=== PATIENT | female | born 1975 | race Caucasian/White ===

== ENCOUNTER → 2020-07-06 10:38 | Outpatient (CLI) | payer OTHER, SELFPAY ==
--- NOTE | 2020-07-06 10:43 | MM_ITS ---
PROCEDURE: MM DIG SCREENING MAMM BI W/CAD Digital Breast Tomosynthesis Included CLINICAL INDICATION: SCREENING There is no personal or family history of breast cancer. There has been a previous biopsy right breast for benign disease. COMPARISON: MG DMSB DIG MAMM-SCREEN BROOKE W/CAD from 08/21/2016 MG DMDXUAVR DIG MAMM-DX UNI A/VW-RT W/CAD from 08/31/2016 MG DMDXUR DIG MAMM-DX UNI-RT W/CAD from 09/13/2016 TECHNIQUE: Standard CC and MLO images and 3D Tomosynthesis was obtained. R2 CAD reviewed. FINDINGS: There is a markedly and diffusely dense and heterogenic parenchymal pattern lessening the sensitivity of mammography. There is a biopsy clip deep in the right breast. Tomograms are most helpful in this type of dense breast parenchyma. There is no suspicious lesion in either breast and no suspicious microcalcifications. However recommend monthly breast self-examination in view of the diffusely dense pattern. IMPRESSION: Diffusely dense parenchymal pattern with no suspicious lesions seen BI-RAD Category: 2 Benign Finding(s) FOLLOW-UP: 1YR 1 Year Follow-up (A letter has been sent to the patient regarding results of the study.) Dictated by: Dr. Kd López MD 07/09/2020 08:57 Dr. Kd López MD in [place] 07/09/2020 08:57
== END ==
PROVIDERS: PCP Nurse Practitioner Family; Visit Provider Nurse Practitioner Family
DX: Z12.31 Encounter for screening mammogram for malignant neoplasm of breast (principal)
CPT/HCPCS: 77063; 77067

== ENCOUNTER 2020-12-05 10:40 | Emergency (ER) | payer OTHER, SELFPAY ==
[2020-12-05 10:45] VITALS: BP 144/88; PULSE 88; RESP 19; TEMP 37.1; O2SAT 98; BMI 28.4
--- NOTE | 2020-12-05 11:13 | HMH.EDUTC ---
[facility] Disposition Clinical Impression: Upper respiratory infection, viral, COVID-19 virus test result unknown Disposition: Home, Self-Care Condition on Discharge: Good Instructions: DI for Viral Upper Respiratory Infection -- Adult, COVID-19: Protecting Yourself When You're at High Risk, Preventing the Spread of Coronavirus Discharge Instructions, DI for COVID-19 (Suspected or Confirmed ) Additional Instructions: covid swab was sent to lab, call later today for results. self isolate until test results are known to be negative No sign of a bacterial infection. Likely viral. Viruses can take 7-14 days to run their course. Nasal saline and bulb syringe or nose Kylie to remove nasal drainage to help with nasal congestion. Hard to eat, drink, sleep with nasal congestion so important to keep this cleaned out. Monitor temp. Tylenol or Motrin as needed for pain or fever Encourage fluids, water, Gatorade, Powerade, Pedialyte if infant/toddler/child Warm salt water gargles Warm fluids Sore throat lozenges Sleep elevated Humidifier/vaporizer Follow-up immediately for new or worsening symptoms or no noticeable improvement over the next 48-72 hours. Referrals: Beti Mitchell APRN [Primary Care Provider] - Time of Disposition: 11:16 Medical Decision Making - Roger Inquiry Pt receiving controlled substance: No Orders (Tests/Meds): ORDERS Category Date Time Status Covid-19 Nasal PCR ([facility]) Routine Lab 12/05/20 11:12 Received [facility] HPI - General Chief complaint: Urgent Treatment [facility] Stated complaint: cough body aches, weakness Time Seen by Provider: 12/05/20 11:13 Mode of Arrival: Ambulatory Source of Information: Patient Limitations: No Limitations - History of Present Illness Provider Complaint: 45 yr old female presents for cough, nasal congestion, tiredness and body aches. pt states she seen her md on sunday and was told it was allergies but her is having same symptoms so they would like tested for covid - Related Data Allergies Allergy/AdvReac Type Severity Reaction Status Date / Time SHELLFISH (FOOD) Allergy Severe S-ANAPHYLAX Uncoded 04/03/17 14:17 IS [facility] History - Hepatitis A Screen Attestation statement:: This patient has been screened for Hepatitis A risk factors. I have reviewed the patient's past medical history: Yes ROS Obtained: Yes Systems reviewed as appropriate & no additional complaints - Constitutional Constitutional: Reports system reviewed and no additional complaints, except as docu, Reports body ache, Reports fatigue, Denies fever(s) - Eyes Eyes: Reports system reviewed and no additional complaints, except as docu, Denies blurry vision - ENT Ears, Nose, Mouth, and Throat: Reports system reviewed and no additional complaints, except as docu, Reports nasal congestion, Reports nasal discharge, Denies sore throat - Cardiovascular Cardiovascular: Reports system reviewed and no additional complaints, except as docu, Denies chest pain - Respiratory Respiratory: Reports system reviewed and no additional complaints, except as docu, Denies chest congestion, Reports cough - Gastrointestinal Gastrointestingal: Reports: system reviewed and no additional complaints, except as docu. Denies: nausea, vomiting - Genitourinary Female Genitourinary: Reports system reviewed and no additional complaints, except as docu - Musculoskeletal Musculoskeletal: Reports system reviewed and no additional complaints, except as docu, Denies joint pain - Integumentary/Breasts Skin/Breast: Reports system reviewed and no additional complaints, except as docu, Denies rash - Neurologic Neurologic: Reports system reviewed and no additional complaints, except as docu, Denies dizziness, Reports headache(s) - Endocrine Endocrine: Reports system reviewed and no additional complaints, except as docu, Reports fatigue - Hematologic/Lymphatic Henatologic/Lymphatic: Reports system reviewed and no
[2020-12-05 11:18] VITALS: BP 144/88; PULSE 88; RESP 19; TEMP 37.1; O2SAT 98
--- NOTE | 2020-12-05 17:15 | PC.NURSE ---
pt notified of positive covid test results
== END 2020-12-05 11:29 | disposition home or self-care (01) ==
PROVIDERS: Emergency Provider Nurse Practitioner Family; PCP Nurse Practitioner Family
DX: U07.1 COVID-19 (principal); J06.9 Acute upper respiratory infection, unspecified
CPT/HCPCS: 99202; G0463; U0003

== ENCOUNTER → 2021-11-14 18:12 | Outpatient (CLI) | payer OTHER, SELFPAY ==
[2021-11-14 19:43] LABS: Alanine Aminotransferase 34 U/L (12-78); Albumin Level 4.6 g/dl (3.5-5.0); Albumin/Globulin Ratio 1.6 (1.1-1.8); Alkaline Phosphatase 82 U/L (38-126); Anion Gap 15.4 mEq/L (5-15); Aspartate Amino Transferase 30 U/L (14-36); Bilirubin,Total 0.3 mg/dl (0.2-1.3); Blood Urea Nitrogen 13 mg/dl (7-17); Calcium 9.8 mg/dl (8.4-10.2); Carbon Dioxide 22 mmol/L (22.0-30.0); Chloride 107 mmol/L (98-107); Chol/HDL Ratio 5.6 (1-3.5); Cholesterol 306 mg/dl (140-200); Estimated Glomerular Filt Rate 132 ml/min (>60); GFR (African American) 159 ML/MIN (>60); Globulin 2.9 g/dL (1.3-3.2); Glucose 259 mg/dl (74-100); HDL Cholesterol 55 mg/dl (40-60); Potassium 4.4 mmoL/L (3.5-5.1); Sodium 140 mmol/L (136-145); Total Protein,Serum 7.5 g/dl (6.3-8.2); Triglycerides 258 mg/dl (30-150); VLDL Cholesterol 52 mg/dL (0-40)
[2021-11-14 19:46] LABS: Basophils # 0.1 K/mm3 (0-0.2); Basophils % 1.8 % (0.1-2.0); Eosinophils # 0.1 K/mm3 (0.0-0.4); Eosinophils % 1.1 % (0.1-12.0); Hematocrit 49.5 % (37.0-47.0); Hemoglobin 15.6 g/dL (12.2-16.2); Lymphocytes % 26.9 % (10-50); Mean Corpuscular HGB Conc 31.5 g/dL (31.8-35.4); Mean Corpuscular Hemoglobin 31.1 pg (27.0-31.2); Mean Corpuscular Volume 98.4 fl (81-99); Mean Platelet Volume 9.7 fl (7.4-10.4); Monocytes # 0.4 K/mm3 (0.1-1.0); Monocytes % 5.6 % (1.7-9.3); Neutrophils # 4.8 K/mm3 (1.8-7.8); Neutrophils % 64.6 % (37.0-80.0); Platelet Count 379 K/mm3 (142-424); Red Blood Count 5.03 M/mm3 (4.20-5.40); Red Cell Distribution Width 13.2 % (11.5-17.5); White Blood Count 7.4 K/mm3 (4.8-10.8)
[2021-11-14 19:54] LABS: Direct LDL Cholesterol 173.43 mg/dL (100-129)
[2021-11-14 21:12] LABS: Hemoglobin A1C 9.3 % (4.0-6.0)
== END ==
LOC: LAB 18:14 → LAB.DROPOF 11-15 10:35
PROVIDERS: PCP Family Medicine; Visit Provider Family Medicine
DX: E11.9 Type 2 diabetes mellitus without complications (principal); Z79.84 Long term (current) use of oral hypoglycemic drugs
CPT/HCPCS: 80053; 80061; 83036; 85025

== ENCOUNTER → 2021-11-15 16:16 | Outpatient (CLI) | payer OTHER, SELFPAY ==
[2021-11-15 17:22] LABS: Thyroid Stimulating Hormone 0.66 uIU/mL (0.465-4.68)
== END ==
PROVIDERS: PCP Family Medicine; Visit Provider Family Medicine
DX: R53.83 Other fatigue (principal)
CPT/HCPCS: 84443

== ENCOUNTER → 2021-11-18 13:10 | Outpatient (CLI) | payer OTHER, SELFPAY | PROVIDERS: PCP Family Medicine; Visit Provider Family Medicine | DX: J02.9 Acute pharyngitis, unspecified (principal) | CPT/HCPCS: 87070 ==

== ENCOUNTER 2022-01-03 16:30 | Emergency (ER) | payer OTHER, SELFPAY ==
[2022-01-03 16:32] VITALS: BP 165/98; PULSE 88; RESP 18; TEMP 36.7; O2SAT 98; BMI 27.2
--- NOTE | 2022-01-03 16:58 | EXP.UTC ---
Discharge Plan Disposition Patient Disposition: Home, Self-Care Condition: Good Prescriptions Prescriptions: New benzonatate [benzonatate] 100 mg capsule 100 mg PO TIDP PRN (Reason: Cough) Qty: 30 0RF methylprednisolone 4 mg Tablets,Dose Pack 4 mg PO DIRECTED Qty: 21 0RF cefdinir 300 mg capsule 300 mg PO BID Qty: 20 0RF No Action omeprazole 40 mg capsule,delayed release(DR/EC) 40 mg PO DAILY Qty: 30 2RF Victoza 2-Ayaz 0.6 mg/0.1 mL (18 mg/3 mL) pen injector 0.6 mg SQ DAILY 30 Days Qty: 3 2RF montelukast [Singulair] 10 mg tablet 10 mg PO DAILY 30 Days Qty: 30 2RF Jardiance 25 mg tablet 25 mg PO DAILY 30 Days Qty: 30 2RF albuterol sulfate [Ventolin HFA] 90 mcg/actuation HFA aerosol inhaler 1 puff IH QID 30 Days Qty: 8.5 2RF glipizide 10 mg tablet extended release 24hr 10 mg PO DAILY 30 Days Qty: 30 2RF metformin 500 mg tablet extended release 24 hr 500 mg PO BID 30 Days Qty: 60 2RF fluconazole [Diflucan] 150 mg tablet 150 mg PO Q3D 0 Days Qty: 2 0RF cephalexin 500 mg tablet 500 mg PO BID 7 Days Qty: 14 0RF Referrals Follow up/Referrals: Jb Antoine MD [Primary Care Provider] - See instructions Activity Restrictions/Add. Instructions Additional Instructions/Restrictions: Drink plenty of fluids. Take tylenol or ibuprofen for pain or fever. Take the medications as directed. Follow up with your regular doctor. GO TO THE ER FOR ANY WORSENING SYMPTOMS Don't start the oral steroids until tomorrow, since you had the shot here today. Clinical Impressions Clinical Impression: Sinusitis Stand Alone Forms Stand Alone Forms: Work/School Release Instructions Patient Instructions: Sinusitis, DI for Sinusitis Discharge ED Provider: Rafael Mckeon [facility] General Stated complaint: head congetion Mode of Arrival: Ambulatory Source of Information: Patient Limitations: No Limitations Time Seen by Provider: 01/03/22 16:55 Description of Symptoms (Recalled from Triage Doc. by RN): SINUS INFECTION HEENT Symptoms (Recalled from RN notes): Yes Resp Symptoms (Recalled from RN notes): No Skin Symptoms (Recalled from RN notes): No MS Symptoms (Recalled from RN notes): No Functional Status (Recalled from RN notes): NA History of Present Illness Provider Complaint: She states that for the past 1 week she has had sinus congestion, and sinus drainage. She denies any fever. She denies that she has covid-19 and she refuses a covid or viral test. Related Data Previous Rx's Medication Instructions Recorded albuterol sulfate 90 mcg/actuation 1 puff inhalation QID shortness of 11/14/21 aerosol inhaler (Ventolin HFA) breath or wheezing 30 days #8.5 grams empagliflozin 25 mg tablet 25 mg PO DAILY diabetes 30 days 11/14/21 (Jardiance) #30 tabs glipizide 10 mg tablet, extended 10 mg PO DAILY diabetes 30 days 11/14/21 release 24 hr #30 tabs liraglutide 0.6 mg/0.1 mL (18 mg/3 0.6 mg (0.1 mL) SQ DAILY diabetes 11/14/21 mL) subcutaneous pen injector 30 days #3 mL (Victoza 2-Ayaz) metformin 500 mg tablet,extended 500 mg PO BID diabetes 30 days #60 11/14/21 release 24 hr tabs montelukast 10 mg tablet 10 mg PO DAILY allergies 30 days 11/14/21 (Singulair) #30 tabs omeprazole 40 mg capsule,delayed 40 mg PO DAILY #30 caps 11/18/21 release cephalexin 500 mg tablet 500 mg PO BID 7 days #14 tabs 12/23/21 fluconazole 150 mg tablet 150 mg PO Q3D 2 doses #2 tabs 12/23/21 (Diflucan) benzonatate 100 mg capsule 100 mg PO TIDP PRN Cough #30 caps 01/03/22 cefdinir 300 mg capsule 300 mg PO BID #20 caps 01/03/22 methylprednisolone 4 mg tablets in 4 mg PO DIRECTED #21 tabs 01/03/22 a dose pack Allergies Allergy/AdvReac Type Severity Reaction Status Date / Time shellfish derived Allergy Verified 12/23/21 08:24 Worker's Comp Is this a Worker's Comp case?: No [facility] Medical History
[2022-01-03 17:21] VITALS: BP 165/98; PULSE 88; RESP 18; TEMP 36.7; O2SAT 99
== END 2022-01-03 17:24 | disposition home or self-care (01) ==
PROVIDERS: Emergency Provider Nurse Practitioner Family; PCP Family Medicine
DX: J32.9 Chronic sinusitis, unspecified (principal)
CPT/HCPCS: 96372; 99212; G0463; J0696

== ENCOUNTER 2022-07-04 14:28 | Emergency (ER) | payer BC, SELFPAY ==
[2022-07-04 15:00] VITALS: BP 138/90; PULSE 107; RESP 20; TEMP 37.3; O2SAT 96; BMI 27.7
--- NOTE | 2022-07-04 15:07 | EXP.UTC ---
Discharge Plan Disposition Patient Disposition: Home, Self-Care Condition: Good Prescriptions Prescriptions: New promethazine-DM 6.25-15 mg/5 mL Syrup 5 ml PO Q6H PRN (Reason: Cough) Qty: 240 0RF amoxicillin [amoxicillin] 875 mg tablet 875 mg PO Q12H Qty: 20 0RF methylprednisolone 4 mg Tablets,Dose Pack 4 mg PO DIRECTED Qty: 21 0RF No Action omeprazole 40 mg capsule,delayed release(DR/EC) 40 mg PO DAILY Qty: 30 2RF Victoza 2-Ayaz 0.6 mg/0.1 mL (18 mg/3 mL) pen injector 0.6 mg SQ DAILY 30 Days Qty: 3 1RF (DME) True Metrix Glucose Test Strip Strip See Rx Instructions .Route Qty: 100 4RF Rx Instructions: As directed epinephrine [EpiPen 2-Ayaz] 0.3 mg/0.3 mL auto-injector 0.3 mg IM Q4H PRN (Reason: hypersensitivity reaction) 30 Days Qty: 2 1RF montelukast [Singulair] 10 mg tablet 10 mg PO DAILY 30 Days Qty: 30 1RF albuterol sulfate 90 mcg/actuation HFA aerosol inhaler 1 puff inhalation Q6H PRN (Reason: bronchospasm) 17 Days Qty: 18 2RF Jardiance 25 mg tablet 25 mg PO DAILY 30 Days Qty: 30 1RF glipizide 10 mg tablet extended release 24hr 10 mg PO DAILY 30 Days Qty: 30 1RF metformin 500 mg tablet extended release 24 hr 500 mg PO BID 30 Days Qty: 60 1RF Referrals Follow up/Referrals: Jb Antoine MD [Primary Care Provider] - See instructions Activity Restrictions/Add. Instructions Additional Instructions/Restrictions: Drink plenty of fluids. Take tylenol or ibuprofen for pain or fever. Take the medications as directed. Follow up with your regular doctor. GO TO THE ER FOR ANY WORSENING SYMPTOMS Don't start the oral steroids until tomorrow, since you had the shot here today. The cough medication (promethazine dm) will make you drowsy, so don't drive or operate heavy machinery after taking it. Clinical Impressions Clinical Impression: Sinusitis Instructions Patient Instructions: DI for Sinusitis Discharge ED Provider: Rafael Mckeon [facility] HPI General Stated complaint: possible sinus infection Time Seen by Provider: 07/04/22 15:07 History of Present Illness Provider Complaint: She states that for the past 1 week she has had sinus congestion and sinus drainage. Related Data Previous Rx's Medication Instructions Recorded omeprazole 40 mg capsule,delayed 40 mg PO DAILY #30 caps 11/18/21 release liraglutide 0.6 mg/0.1 mL (18 mg/3 0.6 mg (0.1 mL) SQ DAILY diabetes 04/11/22 mL) subcutaneous pen injector 30 days #3 mL (Victoza 2-Ayaz) blood sugar diagnostic (True #100 ea 04/12/22 Metrix Glucose Test Strip) epinephrine 0.3 mg/0.3 mL 0.3 mg (0.3 mL) IM Q4H PRN 04/14/22 injection, auto-injector (EpiPen hypersensitivity reaction 30 days 2-Ayaz) #2 ea montelukast 10 mg tablet 10 mg PO DAILY allergies 30 days 04/20/22 (Singulair) #30 tabs albuterol sulfate 90 mcg/actuation 1 puff inhalation Q6H PRN 05/24/22 aerosol inhaler bronchospasm 17 days #18 grams empagliflozin 25 mg tablet 25 mg PO DAILY diabetes 30 days 06/12/22 (Jardiance) #30 tabs glipizide 10 mg tablet, extended 10 mg PO DAILY diabetes 30 days 06/12/22 release 24 hr #30 tabs metformin 500 mg tablet,extended 500 mg PO BID diabetes 30 days #60 06/12/22 release 24 hr tabs amoxicillin 875 mg tablet 875 mg PO Q12H #20 tabs 07/04/22 methylprednisolone 4 mg tablets in 4 mg PO DIRECTED #21 tabs 07/04/22 a dose pack promethazine-DM 6.25 mg-15 mg/5 mL 5 ml PO Q6H PRN Cough #240 mL 07/04/22 oral syrup Allergies Allergy/AdvReac Type Severity Reaction Status Date / Time shellfish derived Allergy Verified 07/04/22 15:24 PFSH [facility] Disclaimer: The information contained in this section may have been updated after the patient was seen, as this information can be updated by other users. Medical History Asthma DM2 (diabetes mellitus, type 2) Hypertension Family History (Reviewed 07/04/22 @ 1
[2022-07-04 16:44] VITALS: BP 138/90; PULSE 107; RESP 20; TEMP 37.3; O2SAT 96
== END 2022-07-04 16:43 | disposition home or self-care (01) ==
PROVIDERS: Emergency Provider Nurse Practitioner Family; PCP Family Medicine
DX: J01.90 Acute sinusitis, unspecified (principal)
CPT/HCPCS: 96372; 99212; 99214; G0463; J0696

== ENCOUNTER → 2023-01-16 16:27 | Outpatient (CLI) | payer BC, SELFPAY ==
--- NOTE | 2023-01-16 16:28 | MM_ITS ---
PROCEDURE INFORMATION: Exam: MG Bilateral Screening 3D Mammography Exam date and time: 01/16/2023 4:26 PM Age: 47 years old Clinical indication: Screening examination TECHNIQUE: Imaging protocol: Bilateral Screening tomosynthesis and 2D mammography including computer-aided detection (CAD) when performed. COMPARISON: 1. MG MM DIG SCREENING MAMM BI W/CAD 07/06/2020 11:04 AM 2. MG DMDXUR DIG MAMM-DX UNI-RT W/CAD 09/13/2016 12:01 PM FINDINGS: MAMMOGRAPHY: Breast composition: The breasts are heterogeneously dense, which may obscure small masses. Mass: None. Architectural distortion: None. Calcifications: No suspicious calcifications. Asymmetric density: None. Skin thickening: None. Axillary adenopathy: None. IMPRESSION: No mammographic evidence of malignancy. Annual screening is recommended unless otherwise clinically indicated. ASSESSMENT: BI-RADS Category 1: Negative
== END ==
PROVIDERS: PCP Family Medicine; Visit Provider Nurse Practitioner Family
DX: Z12.31 Encounter for screening mammogram for malignant neoplasm of breast (principal)
CPT/HCPCS: 77063; 77067

== ENCOUNTER 2023-01-21 09:14 | Emergency (ER) | payer BC, SELFPAY ==
[2023-01-21 09:16] VITALS: BP 131/84; PULSE 113; RESP 18; TEMP 36.9; O2SAT 95; BMI 26.1
--- NOTE | 2023-01-21 09:42 | EXP.UTC ---
Discharge Plan Disposition Patient Disposition: Home, Self-Care Condition: Good Prescriptions Prescriptions: New amoxicillin [amoxicillin] 875 mg tablet 875 mg PO Q12H Qty: 20 0RF benzonatate [benzonatate] 100 mg capsule 100 mg PO TIDP PRN (Reason: Cough) Qty: 30 0RF methylprednisolone 4 mg Tablets,Dose Pack 4 mg PO DIRECTED Qty: 21 0RF No Action albuterol sulfate 90 mcg/actuation HFA aerosol inhaler 1 puff inhalation Q6H PRN (Reason: bronchospasm) 17 Days Qty: 18 2RF phentermine [Adipex-P] 37.5 mg capsule 37.5 mg PO DAILY Qty: 30 3RF Rx Instructions: must administer 30 minutes before or 1-2 hours after breakfast (DME) True Metrix Glucose Test Strip Strip See Rx Instructions .Route Qty: 100 4RF Rx Instructions: As directed epinephrine [EpiPen 2-Ayaz] 0.3 mg/0.3 mL auto-injector 0.3 mg IM Q4H PRN (Reason: hypersensitivity reaction) 30 Days Qty: 2 1RF Victoza 2-Ayaz 0.6 mg/0.1 mL (18 mg/3 mL) pen injector 0.6 mg SQ DAILY 30 Days Qty: 3 2RF montelukast 10 mg tablet See Rx Instructions .ROUTE .COMPLEX Qty: 30 2RF Dose Instruction: TAKE 1 TABLET BY MOUTH DAILY FOR ALLERGIES FOR 30 DAYS Rx Instructions: TAKE 1 TABLET BY MOUTH DAILY FOR ALLERGIES FOR 30 DAYS omeprazole 40 mg capsule,delayed release(DR/EC) 40 mg PO DAILY Qty: 30 2RF glipizide 10 mg tablet extended release 24hr See Rx Instructions .ROUTE .COMPLEX Qty: 90 0RF Dose Instruction: TAKE 1 TABLET BY MOUTH DAILY Rx Instructions: TAKE 1 TABLET BY MOUTH DAILY Jardiance 25 mg tablet See Rx Instructions .ROUTE .COMPLEX Qty: 90 0RF Dose Instruction: TAKE 1 TABLET BY MOUTH DAILY Rx Instructions: TAKE 1 TABLET BY MOUTH DAILY metformin 500 mg tablet extended release 24 hr 500 mg PO BID 30 Days Qty: 60 2RF Referrals Follow up/Referrals: Jb Antoine MD [Primary Care Provider] - See instructions Activity Restrictions/Add. Instructions Additional Instructions/Restrictions: Drink plenty of fluids. Take tylenol or ibuprofen for pain or fever. Take the medications as directed. Follow up with your regular doctor. GO TO THE ER FOR ANY WORSENING SYMPTOMS Clinical Impressions Clinical Impression: Sinusitis Instructions Patient Instructions: Sinusitis, DI for Sinusitis Discharge ED Provider: Rafael Mckeon [facility] HPI General Stated complaint: congestion, sinus pressure, cough Mode of Arrival: Ambulatory Source of Information: Patient Limitations: No Limitations Time Seen by Provider: 01/21/23 09:41 Description of Symptoms (Recalled from Triage Doc. by RN): Sinus infection HEENT Symptoms (Recalled from RN notes): Yes Resp Symptoms (Recalled from RN notes): No Skin Symptoms (Recalled from RN notes): No MS Symptoms (Recalled from RN notes): No Functional Status (Recalled from RN notes): n/a History of Present Illness Provider Complaint: She states that for the past 4 days she has had sinus congestion, sinus drainage, a productive cough and she has felt bad. Related Data Previous Rx's Medication Instructions Recorded blood sugar diagnostic (True #100 ea 04/12/22 Metrix Glucose Test Strip) epinephrine 0.3 mg/0.3 mL 0.3 mg (0.3 mL) IM Q4H PRN 04/14/22 injection, auto-injector (EpiPen hypersensitivity reaction 30 days 2-Ayaz) #2 ea liraglutide 0.6 mg/0.1 mL (18 mg/3 0.6 mg (0.1 mL) SQ DAILY diabetes 09/14/22 mL) subcutaneous pen injector 30 days #3 mL (Victoza 2-Ayaz) montelukast 10 mg tablet See Rx Instructions .Route 09/14/22 .COMPLEX #30 tabs omeprazole 40 mg capsule,delayed 40 mg PO DAILY #30 caps 09/14/22 release empagliflozin 25 mg tablet See Rx Instructions .Route 11/13/22 (Jardiance) .COMPLEX #90 tabs glipizide 10 mg tablet, extended See Rx Instructions .Route 11/13/22 release 24 hr .COMPLEX #90 tabs albuterol sulfate 90 mcg/actuation 1 puff inhalation Q6H PRN 11/28/22 aerosol inhaler bronchospasm 17 days #1
[2023-01-21 10:32] VITALS: BP 131/84; PULSE 113; RESP 18; TEMP 36.9; O2SAT 95
== END 2023-01-21 10:31 | disposition home or self-care (01) ==
PROVIDERS: Emergency Provider Nurse Practitioner Family; PCP Family Medicine
DX: J01.90 Acute sinusitis, unspecified (principal); E11.9 Type 2 diabetes mellitus without complications; I10 Essential (primary) hypertension; J45.909 Unspecified asthma, uncomplicated; Z79.84 Long term (current) use of oral hypoglycemic drugs
CPT/HCPCS: 96372; 99212; 99214; G0463; J0696

== ENCOUNTER 2023-03-19 16:23 | Emergency (ER) | payer BC, SELFPAY ==
[2023-03-19 18:35] VITALS: BP 146/83; PULSE 89; RESP 18; TEMP 36.8; O2SAT 98; BMI 27.1
--- NOTE | 2023-03-19 18:50 | EXP.UTC ---
Discharge Plan Disposition Patient Disposition: Home, Self-Care Condition: Good Prescriptions Prescriptions: New guaifenesin [Mucinex] 600 mg tablet extended release 12hr 600 mg PO BID PRN (Reason: cough) Qty: 20 0RF azithromycin [Zithromax Z-Ayaz] 250 mg tablet See Rx Instructions .ROUTE .COMPLEX 5 Days Qty: 6 0RF Rx Instructions: For 250 mg dose pack: take 500 mg today (day 1), then 250 mg for 4 days (days 2-5) No Action phentermine [Adipex-P] 37.5 mg capsule 37.5 mg PO DAILY Qty: 30 3RF Rx Instructions: must administer 30 minutes before or 1-2 hours after breakfast (DME) True Metrix Glucose Test Strip Strip See Rx Instructions .Route Qty: 100 4RF Rx Instructions: As directed epinephrine [EpiPen 2-Ayaz] 0.3 mg/0.3 mL auto-injector 0.3 mg IM Q4H PRN (Reason: hypersensitivity reaction) 30 Days Qty: 2 1RF metformin 500 mg tablet extended release 24 hr 500 mg PO BID 30 Days Qty: 60 2RF glipizide 10 mg tablet extended release 24hr See Rx Instructions .ROUTE .COMPLEX Qty: 90 0RF Dose Instruction: TAKE 1 TABLET BY MOUTH DAILY Rx Instructions: TAKE 1 TABLET BY MOUTH DAILY albuterol sulfate 90 mcg/actuation HFA aerosol inhaler 1 puff inhalation Q6H PRN (Reason: bronchospasm) 17 Days Qty: 18 2RF Victoza 2-Ayaz 0.6 mg/0.1 mL (18 mg/3 mL) pen injector 0.6 mg SQ DAILY 30 Days Qty: 3 2RF Jardiance 25 mg tablet See Rx Instructions .ROUTE .COMPLEX Qty: 90 0RF Dose Instruction: TAKE 1 TABLET BY MOUTH DAILY Rx Instructions: TAKE 1 TABLET BY MOUTH DAILY Referrals Follow up/Referrals: Jb Antoine MD [Primary Care Provider] - See instructions Activity Restrictions/Add. Instructions Additional Instructions/Restrictions: *Monitor Temp, Over the counter Motrin or Tylenol as directed/as needed Tylenol every 4 hours and Motrin every 6 hours (as long as your family doctor has told you that you can take it) for fever or pain. and straight to ER if unable to lower temp less than 101.0 after medication given *Warm salt water gargles may help to soothe the throat *Throat Lozenges? *Warm fluids like tea with honey may help to soothe the throat? *Sleep elevated *Humidifier/Vaporizer Take medication as prescribed Follow up IMMEDIATELY for new or worsening symptoms or no Noticeable improvement over the next 48-72 hours. 911 for difficulty breathing or swallowing Clinical Impressions Clinical Impression: Sinusitis Qualifiers: Sinusitis location: unspecified location Chronicity: unspecified Qualified Code(s): J32.9 - Chronic sinusitis, unspecified Instructions Patient Instructions: DI for Sinusitis, Sinusitis Discharge ED Provider: Rox Flores [facility] General Stated complaint: congestion cough body ache Mode of Arrival: Ambulatory Source of Information: Patient Limitations: No Limitations Time Seen by Provider: 03/19/23 18:51 Description of Symptoms (Recalled from Triage Doc. by RN): sore throat, BRAGA, cough, and sinus pressure HEENT Symptoms (Recalled from RN notes): Yes Resp Symptoms (Recalled from RN notes): No Skin Symptoms (Recalled from RN notes): No MS Symptoms (Recalled from RN notes): No Functional Status (Recalled from RN notes): n/a History of Present Illness Provider Complaint: Patient states that she has been having sinus pain and pressure, headache and cough States that she had something similiar last month and finished all her medication but it came back and seems to be getting worse Related Data Previous Rx's Medication Instructions Recorded blood sugar diagnostic (True #100 ea 04/12/22 Metrix Glucose Test Strip) epinephrine 0.3 mg/0.3 mL 0.3 mg (0.3 mL) IM Q4H PRN 04/14/22 injection, auto-injector (EpiPen hypersensitivity reaction 30 days 2-Ayaz) #2 ea phentermine 37.5 mg capsule 37.5 mg PO DAILY #30 caps 11/28/22 (Adipex-P) metformin 500 mg tablet,extend
[2023-03-19 19:30] VITALS: BP 146/83; PULSE 89; RESP 18; TEMP 36.8; O2SAT 98
== END 2023-03-19 19:30 | disposition home or self-care (01) ==
PROVIDERS: Emergency Provider Nurse Practitioner; PCP Family Medicine
DX: J01.90 Acute sinusitis, unspecified (principal); R05.9 Cough, unspecified; R09.81 Nasal congestion; R07.0 Pain in throat; R51.9 Headache, unspecified; E11.9 Type 2 diabetes mellitus without complications; I10 Essential (primary) hypertension; J45.909 Unspecified asthma, uncomplicated; Z79.84 Long term (current) use of oral hypoglycemic drugs
CPT/HCPCS: 96372; 99212; 99214; G0463; J0696

== ENCOUNTER 2023-11-20 09:19 | Outpatient (CLI) | payer BC, SELFPAY ==
--- NOTE | 2023-11-20 09:25 | XR_ITS ---
FINAL REPORT CLINICAL HISTORY: left ankle pain and swelling FINDINGS: Left knee Three views were obtained. There is a comminuted fracture of the distal fibular diaphysis. There is mild medial displacement of the main distal fracture fragment. Chronic calcification is seen inferior to the lateral malleolus. There is lateral soft tissue swelling. IMPRESSION: Fracture as above. Reviewed, Interpreted and Dictated by Zain Hernandez III, MD Transcribed by Yaima Samuel Authenticated and [facility]
== END 2023-11-20 23:59 | disposition home or self-care (01) ==
LOC: RAD 09:19
PROVIDERS: PCP Family Medicine; Visit Provider Orthopaedic Surgery
DX: M25.572 Pain in left ankle and joints of left foot (principal)
CPT/HCPCS: 73610

== ENCOUNTER 2023-12-11 10:06 | Outpatient (CLI) | payer BC, SELFPAY ==
--- NOTE | 2023-12-11 10:10 | XR_ITS ---
FINAL REPORT CLINICAL HISTORY: lt ankle pain f/u fx COMPARISON: 11/20/2023 FINDINGS: LEFT ANKLE Three views demonstrate a mildly displaced and mildly comminuted transverse fracture of the distal fibular diaphysis. There is a well-corticated ossific density inferior to the lateral malleolus which appears old. The visualized joint spaces are normally aligned. The soft tissues are unremarkable. IMPRESSION: Distal fibular diaphysis fracture. Reviewed, Interpreted and Dictated by Mo Jacobson MD Transcribed by Rupa Canada Authenticated and [facility]
== END 2023-12-11 23:59 | disposition home or self-care (01) ==
LOC: RAD 10:08
PROVIDERS: PCP Family Medicine; Visit Provider Internal Medicine Medical Oncology
DX: M25.572 Pain in left ankle and joints of left foot (principal)
CPT/HCPCS: 73610

== ENCOUNTER 2024-01-08 09:39 | Outpatient (CLI) | payer BC, SELFPAY ==
--- NOTE | 2024-01-08 09:43 | XR_ITS ---
FINAL REPORT CLINICAL HISTORY: Left Ankle fracture COMPARISON: 12/11/2023 FINDINGS: LEFT ANKLE Three views demonstrate no acute fracture or dislocation. There is a mildly comminuted fracture of the distal fibular shaft. Early callus formation is present with minimal displacement of the fracture fragments. The overall appearance is stable when compared to the prior exam of December 10. The visualized joint spaces are normally aligned. The soft tissues are unremarkable. IMPRESSION: No acute bony abnormality. Mildly comminuted fracture of the distal fibular shaft, with early callus formation and minimal displacement of the fracture fragments, stable. Reviewed, Interpreted and Dictated by Sarika Brizuela MD Transcribed by Kylah Restrepo Authenticated and [facility]
== END 2024-01-08 23:59 | disposition home or self-care (01) ==
LOC: RAD 09:40
PROVIDERS: Visit Provider Orthopaedic Surgery
DX: M25.572 Pain in left ankle and joints of left foot (principal); S82.65XD Nondisplaced fracture of lateral malleolus of left fibula, subsequent encounter for closed fracture with routine healing
CPT/HCPCS: 73610

== ENCOUNTER 2024-02-05 08:32 | Outpatient (CLI) | payer BC, SELFPAY ==
--- NOTE | 2024-02-05 08:36 | XR_ITS ---
PROCEDURE INFORMATION: Exam: XR Left Ankle Exam date and time: 02/05/2024 8:38 AM Age: 48 years old Clinical indication: Pain; Ankle; Left; Additional info: Left ankle pain, broke fibula November 19 TECHNIQUE: Imaging protocol: Radiologic exam of the left ankle. Views: 3 or more views. COMPARISON: CR XR ANKLE LT MIN 3V 01/08/2024 9:45 AM FINDINGS: Bones/joints: Mildly greater callus formation around the distal fibular diaphyseal fracture from the comparison. Fracture gap is still visible. No change in alignment from prior. No appreciable cortical erosion or distinct periosteal reaction. No acute fracture or malalignment. Ankle mortise is congruent. Accessory lateral malleolar ossicle noted. Soft tissues: Unchanged to mildly increased soft tissue swelling of the left lower extremity, most prominent laterally. No distinct gas or foreign body. IMPRESSION: 1. Unchanged alignment and continued healing of the distal fibular diaphyseal fracture. 2. Unchanged to mildly increased soft tissue swelling of the left lower extremity, most prominent laterally.
== END 2024-02-05 23:59 | disposition home or self-care (01) ==
LOC: RAD 08:33
PROVIDERS: PCP Family Medicine; Visit Provider Physician Assistant Surgical
DX: M25.572 Pain in left ankle and joints of left foot (principal); S82.832A Other fracture of upper and lower end of left fibula, initial encounter for closed fracture
CPT/HCPCS: 73610

== ENCOUNTER 2024-02-29 16:14 | Outpatient (CLI) | payer BC, SELFPAY ==
--- NOTE | 2024-02-29 16:14 | MM_ITS ---
PROCEDURE INFORMATION: Exam: MG Bilateral Screening 3D Mammography Exam date and time: 02/29/2024 4:01 PM Age: 49 years old Clinical indication: Screening examination. TECHNIQUE: Imaging protocol: Bilateral Screening tomosynthesis and 2D mammography including computer-aided detection (CAD) when performed. COMPARISON: 1. MG MM DIG SCREENING MAMM BI W/CAD 01/16/2023 4:26 PM 2. MG MM DIG SCREENING MAMM BI W/CAD 07/06/2020 11:04 AM FINDINGS: MAMMOGRAPHY: Breast composition: The breasts are heterogeneously dense, which may obscure small masses. Mass: None. Architectural distortion: None. Calcifications: No suspicious calcifications. Asymmetric density: None. Skin thickening: None. Axillary adenopathy: None. IMPRESSION: No mammographic evidence of malignancy. Annual screening is recommended unless otherwise clinically indicated. ASSESSMENT: BI-RADS Category 1: Negative.
== END 2024-02-29 23:59 | disposition home or self-care (01) ==
LOC: RAD 16:14
PROVIDERS: PCP Family Medicine; Visit Provider Family Medicine
DX: Z12.31 Encounter for screening mammogram for malignant neoplasm of breast (principal)
CPT/HCPCS: 77063; 77067

== ENCOUNTER 2024-04-02 20:00 | Emergency (ER) | payer BC, SELFPAY ==
[2024-04-02 20:22] VITALS: BP 190/96; PULSE 99; RESP 20; TEMP 36.8; O2SAT 95; BMI 26.1
[2024-04-02 20:23] VITALS: PULSE 101; RESP 17; O2SAT 95
--- NOTE | 2024-04-02 20:25 | ECG_ITS ---
APPROVED REPORT Exam: Resting ECG HR:99 bpm ECG Measurements Heart Rate 99 AXES ME 141 P 46 QRSd 90 QRS -54 QT 349 T 69 QTc 405 Conclusion SINUS RHYTHM PATTERN CONSISTENT WITH PULMONARY DISEASE LEFT ANTERIOR FASCICULAR BLOCK [QRS AXIS <= -45, QR IN I, RS IN II] ABNORMAL ECG UNCONFIRMED REPORT Electronically signed by : KAIT ERAZO, 04/03/2024 06:54:23
--- NOTE | 2024-04-02 20:32 | XR_ITS ---
PROCEDURE INFORMATION: Exam: XR Chest Exam date and time: 04/02/2024 8:34 PM Age: 49 years old Clinical indication: Other: Palpitations TECHNIQUE: Imaging protocol: Radiologic exam of the chest. Views: 1 view. COMPARISON: No relevant prior studies available. FINDINGS: Lungs: Unremarkable. No consolidation. Pleural spaces: Unremarkable. No pleural effusion. No pneumothorax. Heart/Mediastinum: Unremarkable. No cardiomegaly. Bones/joints: Unremarkable. IMPRESSION: No acute findings.
--- NOTE | 2024-04-02 20:33 | HMH.EDGENADL ---
Discharge Plan Disposition Patient Disposition: Home, Self-Care Prescriptions Prescriptions: No Action epinephrine [EpiPen 2-Ayaz] 0.3 mg/0.3 mL auto-injector 0.3 mg IM Q4H PRN (Reason: hypersensitivity reaction) 30 Days Qty: 2 1RF ondansetron 4 mg tablet,disintegrating 4 mg PO Q8H PRN (Reason: nausea and vomiting) Qty: 20 0RF (DME) True Metrix Glucose Test Strip Strip See Rx Instructions .Route Qty: 100 4RF Rx Instructions: As directed (DME) FreeStyle [place] 2 [place] Misc See Rx Instructions .Route Qty: 1 0RF Rx Instructions: As directed metformin 500 mg tablet extended release 24 hr 500 mg PO BID 30 Days Qty: 180 2RF Victoza 2-Ayaz 0.6 mg/0.1 mL (18 mg/3 mL) pen injector 1.2 mg SQ DAILY Qty: 6 3RF liraglutide [Victoza 3-Ayaz] 0.6 mg/0.1 mL (18 mg/3 mL) pen injector 1.2 mg SQ DAILY 30 Days Qty: 6 2RF phentermine 37.5 mg capsule 37.5 mg PO DAILY Qty: 30 3RF Rx Instructions: must administer 30 minutes before or 1-2 hours after breakfast glipizide 10 mg tablet extended release 24hr 10 mg PO BID Qty: 180 0RF fluconazole 150 mg tablet 150 mg PO Q3D 0 Days Qty: 2 0RF albuterol sulfate 90 mcg/actuation HFA aerosol inhaler See Rx Instructions .ROUTE .COMPLEX Qty: 18 2RF Dose Instruction: 1 PUFF INHALED EVERY 6 HOURS NEEDED FOR BRONCHOSPASM FOR 17 DAYS Rx Instructions: 1 PUFF INHALED EVERY 6 HOURS NEEDED FOR BRONCHOSPASM FOR 17 DAYS meloxicam 15 mg tablet 15 mg PO DAILY Qty: 30 2RF (DME) FreeStyle [place] 2 Sensor Kit See Rx Instructions .ROUTE .COMPLEX Qty: 1 5RF Dose Instruction: DIRECTED Rx Instructions: DIRECTED Jardiance 25 mg tablet See Rx Instructions .ROUTE .COMPLEX Qty: 90 0RF Dose Instruction: TAKE 1 TABLET BY MOUTH DAILY Rx Instructions: TAKE 1 TABLET BY MOUTH DAILY Referrals Follow up/Referrals: Jb Antoine MD [Primary Care Provider] - See instructions Frederic Lombardo MD [Staff Physician] - See instructions Activity Restrictions/Add. Instructions Additional Instructions/Restrictions: Call cardiology clinic to schedule a follow-up appointment. Please return the emerged part with any new, concerning, or worsening symptoms. Recommend discontinuing phentermine and following up with primary care doctor Clinical Impressions Clinical Impression: Palpitations Print Language Print Language: Guatem[place] Discharge ED Provider: Philippe Martin General Adult HPI General Chief complaint: Arrhythmia/Palpitations Stated complaint: heart palp. SOA Time Seen by Provider: 04/02/24 20:25 Mode of Arrival: Ambulatory Source of Information: Patient Limitations: No Limitations Description of Symptoms (Recalled from ER Triage Doc. by RN): palpitations for past 3 days since starting meloxicam with associated shortness of breath History of Present Illness HPI narrative: This is a 49-year-old female with a past medical history of type 2 diabetes and asthma who presents with palpitations for the last 3 days. States that they have been intermittent. Denies any associated chest pain or shortness of breath. Denies nausea, vomiting, or diarrhea. Denies any other symptoms. 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 States that she has been taking phentermine for several years and just darted meloxicam a couple days ago. Believes that the meloxicam may be contributing to her symptoms. Related Data Previous Rx's ?Medication ?Instructions ?Recorded blood sugar diagnostic (True #100 ea 04/12/22 Metrix Glucose Test Strip) epinephrine 0.3 mg/0.3 mL 0.3 mg (0.3 mL) IM Q4H PRN 05/24/23 injection, auto-injector (EpiPen hypersensitivity reaction 30 days 2-Ayaz) #2 ea flash glucose scanning reader #1 ea 05/25/23 (FreeStyle [place] 2 [place]) metformin 500 mg tablet,extended 500 mg PO BID 30 days #180 tabs 08/29/23 release 24 hr liraglutide 0.6 mg/0.1 mL (18 mg/3 1.2 mg (0.2 mL) SQ DAILY #6 mL 10/05/23 mL) subcutaneous pen injector (Victoza 2-Ayaz) ondansetron 4 mg disintegrating 4 mg PO Q8H PRN nausea and 10/05/23 tablet vomiting #20 tabs liraglutide 0.6 mg/0.1 mL (18 mg/3 1.2 mg (0.2 mL) SQ DAILY 30 days 10/19/23 mL) subcutaneous pen injector #6 mL (Victoza 3-Ayaz) phentermine 37.5 mg capsule 37.5 mg PO DAILY #30 caps 12/10/23 glipizide 10 mg tablet, extended 10 mg PO BID #180 tabs 02/20/24 release 24 hr fluconazole 150 mg tablet 150 mg PO Q3D 2 doses #2 tabs 02/21/24 albuterol sulfate 90 mcg/actuation See Rx Instructions .Route 02/29/24 aerosol inhaler .COMPLEX #18 grams meloxicam 15 mg tablet 15 mg PO DAILY #30 tabs 03/05/24 flash glucose sensor (FreeStyle #1 ea 03/11/24 [place] 2 Sensor kit) empagliflozin 25 mg tablet See Rx Instructions .Route 03/21/24 (Jardiance) .COMPLEX #90 tabs Allergies Allergy/AdvReac Type Severity Reaction Status Date / Time shellfish derived Allergy Verified 02/05/24 09:19 [facility] Disclaimer: The information contained in this section may have been updated after the patient was seen, as this information can be updated by other users. Medical History Hypertension Asthma DM2 (diabetes mellitus, type 2) Surgical History History of eye surgery No significant past surgical history Family History Mother Kidney disease Hypertension Hyperlipidemia Diabetes Social History Smoking Status: Never smoker alcohol intake: never substance use type: denies use current occupational status: employed Travel in the last 8 weeks: None household members: spouse housing: house Have you lived/traveled outside [place] in past 30 days?: No Contact w/someone who lives/traveled outside US past 30 days?: No Exposure to someone with infectious disease in past 14 days?: No Do you have a fever (greater than 100.4 F or 38 C)?: No Have you tested positive for COVID-19: No Exposed to someone with COVID-19 in past 14 days?: No Do you have a sore throat?: No Do you have a cough?: No Do you have any weakness?: No Do you have any diarrhea?: No Are you experiencing any unusual bleeding?: No Do you have any muscle aches/pain?: No Do you have any abdominal pain?: No Are you experiencing loss of taste or smell?: No Other Medical History Have you received the Pneumonia Vaccine: No ROS Obtained: Yes All systems reviewed & no additional complaints except as documented Physical Exam General General appearance: alert and in no apparent distress Eye Eye exam: Present normal appearance, PERRL and EOMI Respiratory Respiratory exam: Present normal lung sounds bilaterally; Absent respiratory distress Cardiovascular Cardiovascular exam: Present regular rate and normal rhythm Abdominal Exam Abdominal exam: Present soft and distention; Absent tenderness, guarding or rebound Extremities Exam Extremities exam: Present normal inspection Neurological Exam Neurological exam: Present alert and oriented X3 Skin Skin exam: Present warm and dry Medical Decision Making Medical Records Medical records reviewed: Yes I reviewed the patient's medical records. Screening: Per USPSTF and CDC recommendations, given the prevalence of disease in our region, it is our hospital?s policy to screen for HIV and viral Hepatitis for all patients aged 18 and over and those with ongoing risk factors. Roger Inquiry Pt receiving controlled substance: No Vital Signs: 04/02/24 20:22 04/02/24 20:23 04/02/24 20:45 Temperature 98.2 F Temperature Source Oral Pulse Rate 101 H 96 H Pulse Rate [Left Brachial] 99 H Respiratory Rate 20 17 19 Blood Pressure 187/101 H Blood Pressure [Left Arm] 190/96 H Blood Pressure Mean [Left Arm] 127 Blood Pressure Source [Left Arm] Automatic Cuff Blood Pressure Position [Left Arm] Sitting 02 Sat by Pulse Oximetry 95 95 94 L Oxygen Delivery Method Room Air 04/02/24 21:00 Temperature Temperature Source Pulse Rate 94 H Pulse Rate [Left Brachial] Respiratory Rate 14 Blood Pressure 128/80 Blood Pressure [Left Arm] Blood Pressure Mean [Left Arm] Blood Pressure Source [Left Arm] Blood Pressure Position [Left Arm] 02 Sat by Pulse Oximetry 94 L Oxygen Delivery Method Lab Data Lab Results 04/02/24 20:20: WBC 8.0, RBC 4.98, Hgb 15.2, Hct 44.3, MCV 89.0, MCH 30.5, MCHC 34.3, RDW 11.9, Plt Count 313, MPV 9.5, Neut % (Auto) 53.8, Lymph % (Auto) 36.1, Murray % (Auto) 8.1, Eos % (Auto) 0.9, Baso % (Auto) 0.2, Neut # (Auto) 4.3, Lymph # (Auto) 2.9, Murray # (Auto) 0.7, Eos # (Auto) 0.1, Baso # (Auto) 0.1, Sodium 138, Potassium 4.3, Chloride 105, Carbon Dioxide 24, Anion Gap 13.3, BUN 17, Creatinine 0.60, Estimated Creat Clear 129, Estimated GFR 105, Est GFR ( Amer) 128, Glucose 182 H, Calcium 9.7, Magnesium 2.1, Total Bilirubin 0.5, AST 36, ALT 32, Alkaline Phosphatase 56, Total Protein 7.4, Albumin 4.7, Globulin 2.7, Albumin/Globulin Ratio 1.7, TSH 1.02 04/02/24 20:20 04/02/24 20:20 Orders (Tests/Meds): ORDERS Category Date Time Status Chest XR -- portable [XR chest portable] Stat Exams 04/02/24 20:32 Taken CBC w/Auto Diff [Complete Blood Count Auto Diff] Stat Lab 04/02/24 20:20 Completed CMP [Comprehensive Metabolic Panel] Stat Lab 04/02/24 20:20 Completed HIV Combo Stat Lab 04/02/24 20:20 Received Hep C Ab with Reflex to RNA Stat Lab 04/02/24 20:20 Received Magnesium Stat Lab 04/02/24 20:20 Completed TSH [Thyroid Stimulating Hormone] Stat Lab 04/02/24 20:20 Completed ECG Data Tracing #1: I reviewed this ECG and interpreted as documented below: Normal sinus rhythm at a rate of 99, QTc of 405, normal axis, no STEMI Medical Decision Narrative: In summary, this 49-year-old female with a past medical history of asthma and type 2 diabetes presents to the emergency department today with intermittent palpitations for the last 3 days. On initial evaluation patient is nontachycardic, afebrile, hemodynamically stable, nontoxic-appearing. Differential diagnosis includes but is not limited to electrolyte abnormality, hypoglycemia, hyperthyroidism, arrhythmia. Based on these concerns, I ordered CXR, EKG, CBC, CMP, magnesium, thyroid studies. ECG personally interpreted as noted above. Labs personally reviewed demonstrate normal TSH, unremarkable CBC and CMP. XR personally interpreted demonstrates no acute cardiopulmonary pathology. On reassessment in stable condition and asymptomatic. No arrhythmia noted while patient remained on the monitor. Patient was appropriate for discharge with follow-up with cardiology for possible Holter monitor placement. Ultimately discharged in stable condition. Critical Care Critical Care Time Critical Care Time: No
[2024-04-02 20:45] VITALS: BP 187/101; PULSE 96; RESP 19; O2SAT 94
[2024-04-02 20:52] LABS: Alanine Aminotransferase 32 U/L (12-78); Albumin Level 4.7 g/dl (3.5-5.0); Albumin/Globulin Ratio 1.7 (1.1-1.8); Alkaline Phosphatase 56 U/L (38-126); Anion Gap 13.3 mEq/L (5-15); Aspartate Amino Transferase 36 U/L (14-36); Bilirubin,Total 0.5 mg/dl (0.2-1.3); Blood Urea Nitrogen 17 mg/dl (7-17); Calcium 9.7 mg/dl (8.4-10.2); Carbon Dioxide 24 mmol/L (22.0-30.0); Chloride 105 mmol/L (98-107); Creatinine Clearance Estimated 129 mL/min (50-200); Estimated Glomerular Filt Rate 105 ml/min (>60); GFR (African American) 128 ML/MIN (>60); Globulin 2.7 g/dL (1.3-3.2); Glucose 182 mg/dl (74-100); Magnesium 2.1 mg/dl (1.6-2.3); Potassium 4.3 mmoL/L (3.5-5.1); Sodium 138 mmol/L (136-145); Total Protein,Serum 7.4 g/dl (6.3-8.2)
[2024-04-02 20:55] LABS: Eosinophils % 0.9 % (0.1-12.0); Hematocrit 44.3 % (37.0-47.0); Hemoglobin 15.2 g/dL (12.2-16.2); Lymphocytes % 36.1 % (10-50); Mean Corpuscular HGB Conc 34.3 g/dL (31.8-35.4); Mean Corpuscular Hemoglobin 30.5 pg (27.0-31.2); Mean Platelet Volume 9.5 fl (7.4-10.4); Monocytes % 8.1 % (1.7-9.3); Neutrophils % 53.8 % (37.0-80.0); Platelet Count 313 K/mm3 (142-424); Red Blood Count 4.98 M/mm3 (4.20-5.40); Red Cell Distribution Width 11.9 % (11.5-17.5)
[2024-04-02 20:56] LABS: Basophils # 0.1 K/mm3 (0-0.2); Basophils % 0.2 % (0.1-2.0); Eosinophils # 0.1 K/mm3 (0.0-0.4); Lymphocytes # 2.9 K/mm3 (0.7-4.5); Monocytes # 0.7 K/mm3 (0.1-1.0); Neutrophils # 4.3 K/mm3 (1.8-7.8)
[2024-04-02 21:00] VITALS: BP 128/80; PULSE 94; RESP 14; O2SAT 94
--- NOTE | 2024-04-02 21:15 | PC.NURSE ---
Pt in sinus rythm per continuous heart monitor Pt denies chest pain Skin pink warm and dry Resp full and easy. CARRANZA x4 Speech clear and appropriate
[2024-04-02 21:23] LABS: Thyroid Stimulating Hormone 1.02 uIU/mL (0.465-4.68)
[2024-04-02 21:35] VITALS: BP 128/80; PULSE 94; RESP 14; TEMP 36.6; O2SAT 98
[2024-04-02 22:10] LABS: HIV Combo NEGATIVE (Negative)
[2024-04-05 05:26] LABS: HCV Ab Non Reactive (Non Reactive)
== END 2024-04-02 21:41 | disposition home or self-care (01) ==
PROVIDERS: Emergency Provider Student in an Organized Health Care Education/Training Program; PCP Family Medicine
DX: R00.2 Palpitations (principal); R06.02 Shortness of breath
CPT/HCPCS: 71045; 80050; 80053; 83735; 84443; 85025; 86803; 87389; 93005; 99284

== ENCOUNTER 2024-12-30 15:38 | Outpatient (CLI) | payer BC, SELFPAY ==
--- NOTE | 2024-12-30 16:00 | US_ITS ---
PROCEDURE: US TRANSVAGINAL CLINICAL INDICATION: postmenopausal bleeding COMPARISON: No exams were available for comparison FINDINGS: Transvaginal sonographic images of the pelvis were obtained. UTERUS: 6.0cm x 5.0cmx 3.5 cm retroverted with a combined endometrial thickness of 3.8mm. LEFT OVARY: 2.7 cmx1.7 cmx2.1cm with a volume of 5.1ml. There is a follicle measuring 1.8 cm x 0.9 cm x 1.5 cm. RIGHT OVARY: 1.7 cmx 2.1cmx2.6 cm with a volume of 4.9ml. There are small calcifications on the surface of the right ovary. Both ovaries are seen and appear normal. Doppler flow to both ovaries are seen. There is no fluid in the cul-de-sac. IMPRESSION: 1. Retroverted uterus normal in shape and size. The endometrium is thin measuring 3.8 mm. 2. Both ovaries are seen and appear normal. The left ovary has a follicle measuring 1.8 cm. 3. No fluid in the cul-de-sac. Dictated by: Justin Alba MD 12/30/2024 18:54 Justin Alba MD in OV 12/30/2024 18:54
== END 2024-12-30 23:59 | disposition home or self-care (01) ==
LOC: RAD 15:39
PROVIDERS: PCP Nurse Practitioner Family; Visit Provider Nurse Practitioner Family
DX: N85.4 Malposition of uterus (principal); N83.02 Follicular cyst of left ovary; N95.0 Postmenopausal bleeding
CPT/HCPCS: 76830